=== PATIENT | female | born 2000 | race Caucasian/White ===

== ENCOUNTER 2020-10-15 22:20 | Emergency (ER) | payer OTHER ==
[~2020-10-15 22:20] MED LIST: COLACE100 MG PO; IBU600 MG PO
[2020-10-16 00:23] LABS: RED BLOOD COUNT 4.3 M/UL (4.00-5.10); WHITE BLOOD COUNT 7.2 K/UL (4.5-11.0)
[2020-10-16 00:44] LABS: BUN/CREATININE RATIO 24 (0-10)
== END 2020-10-16 02:20 | disposition left against medical advice (07) ==
LOC: ER1 22:20
PROVIDERS: Family Medicine
DX: Z53.21 Procedure and treatment not carried out due to patient leaving prior to being seen by health care provider (principal)
CPT/HCPCS: 80053; 82150; 82550; 82553; 83690; 84484; 84703; 85025

== ENCOUNTER 2020-10-25 13:56 | Emergency (ER) | payer OTHER ==
[2020-10-25 14:58] LABS: HEMOGLOBIN 13.9 gm/dl (12.3-15.3); RED BLOOD COUNT 4.52 M/UL (4.00-5.10); WHITE BLOOD COUNT 7.3 K/UL (4.5-11.0)
[2020-10-25 15:21] LABS: BUN/CREATININE RATIO 18 (0-10)
[2020-10-26 17:13] LABS: EBV AB VCA, IGM <36.0 U/mL (0.0-35.9); EBV NUCLEAR ANTIGEN AB, IGG >600.0 U/mL (0.0-17.9)
== END 2020-10-25 17:40 | disposition home or self-care (01) ==
LOC: ER1 13:56
PROVIDERS: Physician Assistant Medical
DX: R10.9 Unspecified abdominal pain (principal); F17.210 Nicotine dependence, cigarettes, uncomplicated
CPT/HCPCS: 71046; 80053; 81001; 83690; 84703; 85025; 86403; 96374; 99284; J1885; Q9967

== ENCOUNTER → 2020-11-09 | Outpatient (CLI) | payer OTHER | LOC: KOH-I 14:10 | DX: M54.9 Dorsalgia, unspecified (principal) | CPT/HCPCS: 72070; 72110 ==

== ENCOUNTER 2021-11-06 18:30 | Inpatient (IN) | payer OTHER ==
[2021-11-06 19:52] LABS: HEMOGLOBIN 12.3 gm/dl (12.3-15.3); RED BLOOD COUNT 4.02 M/UL (4.00-5.10)
[2021-11-06] MEDS ORDERED: IBUPROFEN600 MG PO (23:31)
[2021-11-06] MEDS ORDERED: FERROUS SULFAT325 MG PO (23:31)
[2021-11-06] MEDS ORDERED: COLACE 100MG C100 MG PO (23:31)
[2021-11-07 06:34] LABS: HEMOGLOBIN 10.9 gm/dl (12.3-15.3)
[2021-11-08] MEDS ORDERED: HYDROCODON-ACE1 EAC4 PO (13:04)
== END 2021-11-08 15:55 | disposition home or self-care (01) | DRG 807 ==
LOC: GENOP 18:30 → OB 20:35
PROVIDERS: ADMIT Obstetrics & Gynecology
PROC: 10E0XZZ Delivery of Products of Conception, External Approach (ICD-10-PCS; principal; 2021-11-06)
PROC: 10907ZC Drainage of Amniotic Fluid, Therapeutic from Products of Conception, Via Natural or Artificial Opening (ICD-10-PCS; 2021-11-06)
PROC: 4A1HXCZ Monitoring of Products of Conception, Cardiac Rate, External Approach (ICD-10-PCS; 2021-11-06)
PROC: 0HQ9XZZ Repair Perineum Skin, External Approach (ICD-10-PCS; 2021-11-06)
PROC: 3E0234Z Introduction of Serum, Toxoid and Vaccine into Muscle, Percutaneous Approach (ICD-10-PCS; 2021-11-06)
DX: O70.0 First degree perineal laceration during delivery (principal); Z37.0 Single live birth; Z3A.38 38 weeks gestation of pregnancy; O69.81X0 Labor and delivery complicated by cord around neck, without compression, not applicable or unspecified; Z20.822 Contact with and (suspected) exposure to COVID-19; O99.334 Smoking (tobacco) complicating childbirth; F17.210 Nicotine dependence, cigarettes, uncomplicated; O99.824 Streptococcus B carrier state complicating childbirth; Z23 Encounter for immunization
CPT/HCPCS: 36415; 85014; 85018; 85025; 85461; 86850; 86900; 86901; 90686; J2210; J2540; J2590; J2790; J3010; J7070; U0002